=== PATIENT | female | born 2000 | race Caucasian/White ===

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

== ENCOUNTER 2019-11-19 13:35 | Emergency (ER) | payer SELFPAY ==
[2019-11-19 13:51] VITALS: O2SAT 98
--- NOTE | 2019-11-19 14:21 | XRAY ---
Indication: Pain following kickboxing injury. Comparison: None 3 nonweightbearing views right foot obtained. No bony, articular, or soft tissue abnormalities.
[2019-11-19 14:39] VITALS: BP 98/60; PULSE 69
--- NOTE | 2019-11-19 14:49 | ERPHSYRPT ---
- History of Present Illness Time Seen by Provider: 11/19/19 13:44 Source: patient Patient Subjective Stated Complaint: Pt states "I was doing a little drinking last night and me and one of my friends were messing around boxing and kickboxing and now my right ankle hurts." Triage Nursing Assessment: PT presented alert and oriented X 3, skin wpd Pt ambulates with an upright gait, limping slightly. Pt is tender to medial right ankle and foot, no bruising or swelling noted. Physician History: 19 years old female presented in the ER with chief complaint of right foot pain since morning. Patient reports last night she was drinking and boxing/ kickboxing and this morning woke up with to moderate sharp pain in the right medial foot especially with weightbearing/movement and palpation and better with being still. No swelling of the foot. No ankle pain. Does not remember any obvious injury to right foot. Method of Injury: unknown Occurred: yesterday Quality: intermittent Severity of Pain-Max: moderate Severity of Pain-Current: mild Lower Extremities Pain: foot: right Modifying Factors: Improves With: immobilization, movement Allergies/Adverse Reactions: acetaminophen Allergy (Verified 09/03/18 20:54) Rash Hx Tetanus, Diphtheria Vaccination/Date Given: Yes Hx Influenza Vaccination/Date Given: No Hx Pneumococcal Vaccination/Date Given: No Immunizations Up to Date: Yes Travel Risk - International Travel Have you traveled outside of the country in past 3 weeks: No Have you or anyone close to you been diagnosed with or: No Do your reside in a community with a known COVID-19 case?: Yes If Yes where:: [place] - Coronavirus Screening Has patient experienced Coronavirus symptoms: No - Review of Systems Constitutional: No Symptoms Eyes: No Symptoms Ears, Nose, & Throat: No Symptoms Respiratory: No Symptoms Cardiac: No Symptoms Abdominal/Gastrointestinal: No Symptoms Genitourinary Symptoms: No Symptoms Musculoskeletal: Joint Pain Skin: No Symptoms Neurological: No Symptoms Psychological: No Symptoms Endocrine: No Symptoms - Past Medical History Pertinent Past Medical History: No Neurological History: No Pertinent History ENT History: No Pertinent History Cardiac History: No Pertinent History Respiratory History: No Pertinent History Endocrine Medical History: No Pertinent History Musculoskeletal History: No Pertinent History GI Medical History: No Pertinent History History: No Pertinent History Psycho-Social History: No Pertinent History Female Reproductive Disorders: No Pertinent History - Past Surgical History Past Surgical History: Yes Neuro Surgical History: No Pertinent History Cardiac: No Pertinent History Respiratory: No Pertinent History Gastrointestinal: No Pertinent History Genitourinary: No Pertinent History Musculoskeletal: No Pertinent History Female Surgical History: No Pertinent History - Social History Smoking Status: Current every day smoker How long have you smoked: years Exposure to second hand smoke: Yes Drug Use: none Patient Lives Alone: No - Female History Hx Last Menstrual Period: 11/10/2019 Hx Now: No - Nursing Vital Signs Nursing Vital Signs: Initial Vital Signs Temperature 98.5 F 11/19/19 13:46 Pulse Rate 100 H 11/19/19 13:46 Respiratory Rate 18 11/19/19 13:46 Blood Pressure 118/84 11/19/19 13:46 O2 Sat by Pulse Oximetry 98 11/19/19 13:46 Pain Scale Pain Intensity 4 - Physical Exam General Appearance: no apparent distress, alert Eyes, Ears, Nose, Throat Exam: normal ENT inspection, TMs normal, pharynx normal Neck Exam: normal inspection, supple, full range of motion Cardiovascular/Respiratory Exam: normal breath sounds, regular rate/rhythm Gastrointestinal/Abdominal Exam: non-tender, soft Back Exam: normal inspection Hips Exam: bilateral: non-tender, normal inspection, normal range of motion Legs Exam: bilateral leg: non-tender, normal inspection, normal range of motion , no evidence of injury Knees Exam: bilateral knee: non-tender, normal inspection, normal range of motion Ankle Exam: bilateral ankle: non-tender, normal inspection, normal range of motion, no evidence of injury Foot Exam: right foot: bone tenderness (Medial foot tarsal bones), pain, left foot: non-tender, bilateral foot: normal inspection, normal range of motion, no evidence of injury Neuro/Tendon Exam: normal sensation, normal motor functions Mental Status Exam: alert, oriented x 3, cooperative Skin Exam: normal color SpO2 Interpretation: normal SpO2: 98 O2 Delivery: Room Air - Course Nursing assessment & vital signs reviewed: Yes Ordered Tests: Active Orders 24 hr Category Date Time Status FOOT (MINIMUM 3 VIEWS) Stat Exams 11/19/19 14:14 Completed - Progress Progress: unchanged Progress Note: 11/19/19 14:48 Is offered pain medication which she refused. She does not have any obvious swelling but has mild tenderness with palpation. X-rays ruled out fracture dislocation. I believe she has ligamentous strain. Recommended Neville wrap, weightbearing as tolerated and NSAIDs. Outpatient follow-up with Ortho clinic. Discussed signs symptoms of worsening needing return to ER which she seems understanding. Stable for discharge. Counseled pt/family regarding: diagnosis, need for follow-up, rad results - Departure Departure Disposition: Home Clinical Impression: Right foot sprain Qualifiers: Encounter type: initial encounter Qualified Code(s): S93.601A - Unspecified sprain of right foot, initial encounter Condition: Stable Critical Care Time: No Referrals: DOCTOR,NO FAMILY [Primary Care Provider] - CLINTON SAM NP [NON-STAFF PHY W/O PRIVILEGES] - Follow Up with PCP/3 days Instructions: Foot Sprain (DC) Additional Instructions: Weightbearing as tolerated. Take Tylenol/ibuprofen as needed. Follow-up with Ortho clinic for reevaluation. Return to ER for increasing pain, swelling or difficulty ambulation etc. Prescriptions: Ibuprofen 600 mg PO Q6HPRN PRN 10 Days #20 tablet PRN Reason: Pain
== END 2019-11-19 15:03 | disposition home or self-care (01) ==
LOC: ED 13:35
DX: S93.601A Unspecified sprain of right foot, initial encounter (principal); W51.XXXA Accidental striking against or bumped into by another person, initial encounter; Y93.71 Activity, boxing; Y92.89 Other specified places as the place of occurrence of the external cause; Z72.0 Tobacco use
CPT/HCPCS: 73630; 99283

== ENCOUNTER 2019-11-29 10:24 | Emergency (ER) | payer SELFPAY ==
--- NOTE | 2019-11-29 11:20 | ERPHSYRPT ---
- History of Present Illness Time Seen by Provider: 11/29/19 11:05 Source: patient Exam Limitations: no limitations Patient Subjective Stated Complaint: pt here for a sore thorat for 3-4 days now , no fever, slight cough Triage Nursing Assessment: pt alert, walked in, resp easy, skin w/d/p. wearing mask Physician History: 19-year-old white female who presents with sore throat for 4 days. She states that she has a chronic cough. She is a daily smoker of cigarettes. Patient denies chest pain and she denies shortness of breath. She has had no nausea vomiting or diarrhea. She has had no flulike symptoms. Approximately 1 month ago patient was diagnosed with strep throat. The symptoms feel similar to that. Patient does have a history of seasonal allergies. Timing/Duration: gradual onset Severity: moderate ENT Location: throat Prearrival Treatment: no prearrival treatment Modifying Factors: Improves With: coughing (Mild nonproductive) Associated Symptoms: cough, sore throat, other (To swallow solids or liquids), No fever (Nonproductive), No chills Allergies/Adverse Reactions: acetaminophen Allergy (Verified 11/29/19 10:39) Rash Hx Tetanus, Diphtheria Vaccination/Date Given: Yes Hx Influenza Vaccination/Date Given: No Hx Pneumococcal Vaccination/Date Given: No Immunizations Up to Date: Yes Travel Risk - International Travel Have you traveled outside of the country in past 3 weeks: No Have you or anyone close to you been diagnosed with or: No Do your reside in a community with a known COVID-19 case?: Yes If Yes where:: [place] - Coronavirus Screening Has patient experienced Coronavirus symptoms: No - Review of Systems Constitutional: No Symptoms Eyes: No Symptoms Ears, Nose, & Throat: Throat Pain Respiratory: Cough (Mild nonproductive) Cardiac: No Symptoms Abdominal/Gastrointestinal: No Symptoms Genitourinary Symptoms: No Symptoms Musculoskeletal: No Symptoms Skin: No Symptoms Neurological: No Symptoms Psychological: No Symptoms Endocrine: No Symptoms Hematologic/Lymphatic: No Symptoms Immunological/Allergic: No Symptoms All Other Systems: Reviewed and Negative - Past Medical History Pertinent Past Medical History: No Neurological History: No Pertinent History ENT History: No Pertinent History Cardiac History: No Pertinent History Respiratory History: No Pertinent History Endocrine Medical History: No Pertinent History Musculoskeletal History: No Pertinent History GI Medical History: No Pertinent History History: No Pertinent History Psycho-Social History: No Pertinent History Female Reproductive Disorders: No Pertinent History - Past Surgical History Past Surgical History: Yes Neuro Surgical History: No Pertinent History Cardiac: No Pertinent History Respiratory: No Pertinent History Gastrointestinal: No Pertinent History Genitourinary: No Pertinent History Musculoskeletal: No Pertinent History Female Surgical History: No Pertinent History - Social History Smoking Status: Current some day smoker How long have you smoked: years Exposure to second hand smoke: Yes Drug Use: other Patient Lives Alone: Yes - Female History Hx Last Menstrual Period: 3 weeks ago Hx Now: No - Nursing Vital Signs Nursing Vital Signs: Initial Vital Signs Temperature 98.6 F 11/29/19 10:33 Pulse Rate 87 11/29/19 10:33 Respiratory Rate 16 11/29/19 10:33 Blood Pressure 111/87 11/29/19 10:33 O2 Sat by Pulse Oximetry 97 11/29/19 10:33 Pain Scale Pain Intensity 6 - Physical Exam General Appearance: no apparent distress, alert Eye Exam: bilateral eye: normal inspection, PERRL, EOMI Ear Exam: bilateral ear: auricle normal, canal normal, TM normal Nasal Exam: normal inspection Throat Exam: pharynx swelling (With mild pharyngeal redness), No tonsillar exudate Neck Exam: normal inspection, non-tender, supple, full range of motion, trachea midline, No lymphadenopathy (R), No lymphadenopathy (L) Cardiovascular/Respiratory Exam: chest non-tender, normal breath sounds, regular rate/rhythm, heart sounds normal, no respiratory distress Abdominal Exam: non-tender Neurologic Exam: alert, oriented x 3, cooperative, strip stamp straightener II-XII nml as tested, normal mood/affect, nml cerebellar function, nml station & gait Skin Exam: normal color, warm, dry SpO2 Interpretation: normal SpO2: 97 O2 Delivery: Room Air - Course Nursing assessment & vital signs reviewed: Yes - Progress Progress: unchanged Counseled pt/family regarding: diagnosis, need for follow-up, rad results - Departure Departure Disposition: Home Clinical Impression: Pharyngitis Condition: Stable Critical Care Time: No Referrals: DOCTOR,NO FAMILY [Primary Care Provider] - Additional Instructions: Drink plenty of fluids, avoid exposure to smoke of any kind. Take your medications as prescribed. Follow-up with your primary care physician for persistent symptoms Prescriptions: Azithromycin 250 mg [Zithromax 250 MG TABLET] 250 mg PO ZPACK #6 tablet Hydrocodone/Chlorphen Polis [Tussionex Pennkinetic Susp] 5 ml PO BID #60 ml Prednisone 10 mg [Deltasone 10 mg] 10 mg PO TID #12 tablet
[2019-11-29 11:35] VITALS: BP 126/86; PULSE 86; O2SAT 98
== END 2019-11-29 11:45 | disposition home or self-care (01) ==
LOC: ED 10:24
DX: J02.9 Acute pharyngitis, unspecified (principal)
CPT/HCPCS: 99283

== ENCOUNTER 2019-12-02 04:21 | Emergency (ER) | payer SELFPAY ==
--- NOTE | 2019-12-02 04:51 | ERPHSYRPT ---
- History of Present Illness Source: patient Patient Subjective Stated Complaint: Patient states " I have had a sore throat for about 6 days now and it is very hard to swallow", Triage Nursing Assessment: . Physician History: 19 [address] x6 days/mild coryza/mild cough wo fever/N/V/D/dysuria/hematuria. Pt seen in ER on 11/29/19 and prescribed Zithromax which she did not get filled. Timing/Duration: other (6days) Cough Quality/Degree: mild, dry cough Possible Cause: no prior episodes Modifying Factors: Improves With: nothing Associated Symptoms: cough, sore throat, No fever, No chills, No earache, No headache Allergies/Adverse Reactions: acetaminophen Allergy (Verified 12/02/19 04:39) Rash Hx Tetanus, Diphtheria Vaccination/Date Given: Yes Hx Influenza Vaccination/Date Given: No Hx Pneumococcal Vaccination/Date Given: No Immunizations Up to Date: Yes Travel Risk - International Travel Have you traveled outside of the country in past 3 weeks: No - Coronavirus Screening Are you exhibiting any of the following symptoms?: No Close contact with a COVID-19 positive Pt in past 14-21 Days: No - Review of Systems Constitutional: No Symptoms Eyes: No Symptoms Respiratory: Cough Cardiac: No Symptoms Abdominal/Gastrointestinal: No Symptoms Genitourinary Symptoms: No Symptoms Musculoskeletal: No Symptoms Skin: No Symptoms Neurological: No Symptoms Psychological: No Symptoms Endocrine: No Symptoms Hematologic/Lymphatic: No Symptoms Immunological/Allergic: No Symptoms - Past Medical History Pertinent Past Medical History: No Neurological History: No Pertinent History ENT History: No Pertinent History Cardiac History: No Pertinent History Respiratory History: No Pertinent History Endocrine Medical History: No Pertinent History Musculoskeletal History: No Pertinent History GI Medical History: No Pertinent History History: No Pertinent History Psycho-Social History: No Pertinent History Female Reproductive Disorders: No Pertinent History - Past Surgical History Past Surgical History: Yes Neuro Surgical History: No Pertinent History Cardiac: No Pertinent History Respiratory: No Pertinent History Gastrointestinal: No Pertinent History Genitourinary: No Pertinent History Musculoskeletal: No Pertinent History Female Surgical History: No Pertinent History - Social History Smoking Status: Current every day smoker How long have you smoked: 6 years Exposure to second hand smoke: Yes Drug Use: other Patient Lives Alone: No Significant Family History: no pertinent family hx - Female History Hx Last Menstrual Period: 11/01/19 Hx Now: No - Nursing Vital Signs Nursing Vital Signs: Initial Vital Signs Temperature 98.6 F 12/02/19 04:27 Pulse Rate 100 H 12/02/19 04:27 Respiratory Rate 16 12/02/19 04:27 Blood Pressure 116/88 12/02/19 04:27 O2 Sat by Pulse Oximetry 97 12/02/19 04:27 Pain Scale Pain Intensity 6 - Physical Exam General Appearance: no apparent distress Eye Exam: PERRL/EOMI, eyes nml inspection Ears, Nose, Throat Exam: pharyngeal erythema (Mild) Respiratory Exam: normal breath sounds, lungs clear, airway intact, No respiratory distress Cardiovascular Exam: regular rate/rhythm, normal peripheral pulses, No murmur Back Exam: normal inspection, normal range of motion Extremity Exam: normal inspection, normal range of motion Neurologic Exam: alert, oriented x 3, cooperative, 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, normal mood/affect, sensation nml, No motor deficits, No sensory deficit Skin Exam: normal color, warm, dry Lymphatic Exam: No adenopathy SpO2 Interpretation: normal SpO2: 97 Lab/Rad Data: Laboratory Results 12/02/19 Range/Units 04:35 Group A Strep Antibody NOT DETECTED (NEGATIVE) - Progress Progress: unchanged Progress Note: 12/02/19 05:09 Rapid strep neg/Most likely viral Antibiotics given: No Counseled pt/family regarding: lab results, need for follow-up - Departure Departure Disposition: Home, Extended Care Facility Clinical Impression: Pharyngitis Condition: Stable Critical Care Time: No Referrals: DOCTOR,NO FAMILY [Primary Care Provider] - Instructions: Viral Pharyngitis (DC) Additional Instructions: Fluids/Motrin for pain/Follow up with your family
[2019-12-02 05:19] VITALS: BP 117/98; PULSE 88; O2SAT 98
== END 2019-12-02 05:19 | disposition home or self-care (01) ==
LOC: ED 04:21
DX: J02.9 Acute pharyngitis, unspecified (principal)
CPT/HCPCS: 87651; 99283

== ENCOUNTER 2019-12-24 03:34 | Emergency (ER) | payer OTHER ==
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
[2019-12-24 04:51] LABS: ALBUMIN 4.6 g/dL (3.5-5.0); ALKALINE PHOSPHATASE 63 U/L (38-126); ANION GAP 15.1 MEQ/L (5-15); Absolute Neutrophil Ct (ANC) 4.09 (1.4-6.9); BASOPHIL % 0.6 % (0.0-0.4); BLOOD UREA NITROGEN 5 mg/dL (7-17); Basophil (Absolute #) 0.04 (0-0.4); CHLORIDE 110 mmol/L (98-107); Calcium 9.6 mg/dL (8.4-10.2); Carbon Dioxide 21 mmol/L (22-30); Creatinine 1 0.61 mg/dL (0.52-1.04); ETHYL ALCOHOL 222 mg/dL (0-10); Eosinophil % 0.8 % (0.00-5.0); Eosinophil (Absolute #) 0.05 (0-0.5); Glucose 104 mg/dL (74-106); Hematocrit 39.2 % (35-47); Hemoglobin 13.1 gm/dl (12.0-16.0); Lymphocyte (Absolute #) 1.82 (1.0-4.6); Lymphocytes % 27.7 % (24.0-44.0); Mean Cell Volume 91.2 fl (78-100); Mean Corpuscular Hemoglobin 30.5 pg (26-32); Mean Corpuscular Hgb Concent. 33.4 g/dl (32-36); Mean Platelet Volume 10.5 fl (7.5-11.0); Monocyte (Absolute #) 0.57 (0.0-1.3); Monocytes % 8.7 % (0.0-12.0); Neutrophil % 62.2 % (36.0-66.0); Platelet Count 300 K/mm3 (150-450); Potassium 3.4 mmol/L (3.5-5.1); Red Cell Distribution Width 14.4 % (11.5-14.0); SGOT/AST 25 U/L (14-36); SGPT/ALT 15 U/L (0-35); SODIUM 142 mmol/L (137-145); Total Protein 7.9 g/dL (6.3-8.2); White Blood Count 6.6 K/mm3 (4.0-10.5)
[2019-12-24 04:53] LABS: ACETAMINOPHEN < 10 ug/ml (10-30)
[2019-12-24 05:02] LABS: Appearance CLEAR (CLEAR); Bacteria NONE SEEN /HPF (NEGATIVE); Bilirubin NEGATIVE (NEGATIVE); Blood NEGATIVE Ery/ul (0-5); Epithelial Cells RARE /HPF (FEW); Glucose NEGATIVE (NEGATIVE); Ketones NEGATIVE (NEGATIVE); Leukocyte Esterase NEGATIVE (NEGATIVE); Nitrite NEGATIVE (NEGATIVE); Protein,Urine Dip NEGATIVE (Negative); RBC NONE SEEN /HPF (0-2); Specific Gravity 1.001 (1.005-1.025); Urobilinogen NORMAL mg/dL (0-1); WBC NONE SEEN /HPF (0-5)
[2019-12-24 05:07] LABS: Amphetamine,Urine NEGATIVE (NEGATIVE); Barbiturate,Urine NEGATIVE (NEGATIVE); Benzodiazepine,Urine NEGATIVE (NEGATIVE); Cocaine,Urine NEGATIVE (NEGATIVE); Methadone,Urine NEGATIVE (NEGATIVE); Opiate,Urine NEGATIVE (NEGATIVE); PCP,Urine NEGATIVE (NEGATIVE); THC,Urine NEGATIVE (NEGATIVE)
[2019-12-24 05:29] VITALS: BP 108/58; PULSE 89; O2SAT 99
--- NOTE | 2019-12-24 08:47 | XRAY ---
Indication: Pain following injury. Comparison: None 3 view right hand obtained. No bony, articular, or soft tissue abnormalities.
[2019-12-24] MEDS ORDERED: NICOTINE PATCH 7MG TD SCH (10:00)
== END 2019-12-24 05:30 | disposition home or self-care (01) ==
LOC: ED 03:34
DX: F10.929 Alcohol use, unspecified with intoxication, unspecified (principal); S60.221A Contusion of right hand, initial encounter; Y04.0XXA Assault by unarmed brawl or fight, initial encounter; S60.511A Abrasion of right hand, initial encounter
CPT/HCPCS: 36415; 73130; 80053; 80307; 81001; 81025; 85025; 99284; G0480

== ENCOUNTER 2020-01-07 09:31 | Emergency (ER) | payer OTHER ==
[2020-01-07] MEDS ORDERED: Zofran 4 MG/2 ML VIAL IV ONE (09:39)
[2020-01-07] MEDS ORDERED: Sodium Chloride 0.9% 1000 ML 1,000 ML IV STA (09:39)
[2020-01-07] MEDS ORDERED: MORPHINE SULFATE 2 MG INJ IV ONE (09:39)
[2020-01-07 09:49] VITALS: BP 145/89; PULSE 95; O2SAT 98
[2020-01-07] MEDS ORDERED: Zofran 4 MG/2 ML VIAL ONE (09:56)
[2020-01-07] MEDS ORDERED: Sodium Chloride 0.9% 1000 ML 1,000 ML ONE (09:57)
[2020-01-07] MEDS ORDERED: MORPHINE SULFATE 2 MG INJ ONE (09:57)
--- NOTE | 2020-01-07 10:11 | ERPHSYRPT ---
- History of Present Illness Time Seen by Provider: 01/07/20 09:45 Historian: patient Exam Limitations: no limitations Patient Subjective Stated Complaint: pt here for n/v/d since sat. and left sided abd on sunday, she staes she is able to eat and drink Triage Nursing Assessment: pt janice, walked in with face mask in place, pain to left abd, abd soft. moves all ext well Physician History: Patient is a 19-year-old female presents to our ED for evaluation of nausea vomiting and diarrhea. Symptoms started Sunday. Patient developed left side abdominal pain yesterday. Symptoms have been progressive. Symptoms are mild to moderate intensity. Pain reproduced with palpation to left abdomen. Patient denies . No associated fever. No trauma. Patient states he is otherwise healthy. She voices no other complaints at this time. Timing/Duration: day(s) (4 days ago) Activities at Onset: none Quality: aching Abdominal Pain Onset Location: other (Left abdomen.) Pain Radiation: no radiation Severity of Pain-Max: moderate Severity of Pain-Current: mild Modifying Factors: Improves With: movement Associated Symptoms: diarrhea, nausea, vomiting Previous symptoms: no prior history Allergies/Adverse Reactions: acetaminophen Allergy (Verified 01/07/20 09:36) Rash Home Medications: No Reportable Medications [No Reported Medications] 01/07/20 [History] Hx Tetanus, Diphtheria Vaccination/Date Given: Yes Hx Influenza Vaccination/Date Given: No Hx Pneumococcal Vaccination/Date Given: No Immunizations Up to Date: Yes Travel Risk - International Travel Have you traveled outside of the country in past 3 weeks: No - Coronavirus Screening Are you exhibiting any of the following symptoms?: No Close contact with a COVID-19 positive Pt in past 14-21 Days: No - Review of Systems Constitutional: No Symptoms, No Fever, No Chills Eyes: No Symptoms Ears, Nose, & Throat: No Symptoms Respiratory: No Symptoms, No Cough, No Dyspnea Cardiac: No Symptoms, No Chest Pain, No Edema, No Syncope Abdominal/Gastrointestinal: No Symptoms, No Abdominal Pain, No Nausea, No Vomiting, No Diarrhea Genitourinary Symptoms: No Symptoms, No Dysuria Musculoskeletal: No Symptoms, No Back Pain, No Neck Pain Skin: No Symptoms, No Rash Neurological: No Symptoms, No Dizziness, No Focal Weakness, No Sensory Changes Psychological: No Symptoms Endocrine: No Symptoms Hematologic/Lymphatic: No Symptoms Immunological/Allergic: No Symptoms All Other Systems: Reviewed and Negative - Past Medical History Pertinent Past Medical History: No Neurological History: No Pertinent History ENT History: No Pertinent History Cardiac History: No Pertinent History Respiratory History: No Pertinent History Endocrine Medical History: No Pertinent History Musculoskeletal History: No Pertinent History GI Medical History: No Pertinent History History: No Pertinent History Psycho-Social History: No Pertinent History Female Reproductive Disorders: No Pertinent History - Past Surgical History Past Surgical History: Yes Neuro Surgical History: No Pertinent History Cardiac: No Pertinent History Respiratory: No Pertinent History Gastrointestinal: No Pertinent History Genitourinary: No Pertinent History Musculoskeletal: No Pertinent History Female Surgical History: No Pertinent History - Social History Smoking Status: Current every day smoker How long have you smoked: 6 years Exposure to second hand smoke: Yes Drug Use: none Patient Lives Alone: No Significant Family History: no pertinent family hx - Female History Hx Last Menstrual Period: november Hx Now: No - Nursing Vital Signs Nursing Vital Signs: Initial Vital Signs Temperature 99.2 F 01/07/20 09:37 Pulse Rate 95 H 01/07/20 09:37 Respiratory Rate 16 01/07/20 09:37 Blood Pressure 145/89 01/07/20 09:37 O2 Sat by Pulse Oximetry 98 01/07/20 09:37 Pain Scale Pain Intensity 0 - Physical Exam General Appearance: no apparent distress, alert Eye Exam: PERRL/EOMI, eyes nml inspection Ears, Nose, Throat Exam: normal ENT inspection, pharynx normal, moist mucous membranes Neck Exam: normal inspection, non-tender, supple, full range of motion Respiratory Exam: normal breath sounds, lungs clear, No respiratory distress Cardiovascular Exam: regular rate/rhythm, normal heart sounds Gastrointestinal/Abdomen Exam: soft, tenderness (Tenderness to palpation at left mid lower abdomen. Overlying soft tissue intact. No signs of trauma. Negative Bartlett Salinas sign. Negative Marcus sign. No rebound or guarding. No peritoneal signs.), No mass, No guarding, No organomegaly, No splenomegaly Back Exam: normal inspection, normal range of motion, No CVA tenderness, No vert ebral tenderness Extremity Exam: normal inspection, normal range of motion, pelvis stable Neurologic Exam: alert, oriented x 3, cooperative, normal mood/affect, nml cerebellar function, sensation nml, No motor deficits Skin Exam: normal color, warm, dry Lymphatic Exam: No adenopathy SpO2 Interpretation: normal SpO2: 98 O2 Delivery: Room Air - Course Nursing assessment & vital signs reviewed: Yes - CT Exams Abdomen/Pelvis CT Interpretation: Discussed w/radiologist (Fecal debris predominantly in the right hemicolon. Otherwise negative CT abdomen pelvis with contrast.) Ordered Tests: Active Orders 24 hr Category Date Time Status IV Insertion STAT Care 01/07/20 09:39 Active ABDOMEN AND PELVIS W CONTRAST [CT] Stat Exams 01/07/20 09:40 Completed CBC W DIFF Stat Lab 01/07/20 10:15 Completed CMP Stat Lab 01/07/20 10:15 Completed HCG,QUALITATIVE URINE Stat Lab 01/07/20 10:12 Completed LIPASE Stat Lab 01/07/20 10:15 Completed UA W/RFX UR CULTURE Stat Lab 01/07/20 10:12 Completed Medication Summary Discontinued Medications Generic Name Dose Route Start Last Admin Trade Name Freq PRN Reason Stop Dose Admin Sodium Chloride 1,000 mls @ 999 mls/hr 01/07/20 09:39 01/07/20 11:53 Sodium Chloride 0.9% 1000 Ml IV 01/07/20 10:39 Infused .Q1H1M STA Infusion Sodium Chloride Confirm 01/07/20 09:57 Sodium Chloride 0.9% 1000 Ml Administered 01/07/20 09:58 Dose 1,000 mls @ ud .ROUTE .STK-MED ONE Morphine Sulfate 2 mg 01/07/20 09:39 01/07/20 10:28 Morphine Sulfate 2 Mg Inj IV 01/07/20 09:40 2 mg STAT ONE Administration Morphine Sulfate Confirm 01/07/20 09:57 Morphine Sulfate 2 Mg Inj Administered 01/07/20 09:58 Dose 2 mg .ROUTE .STK-MED ONE Ondansetron HCl 4 mg 01/07/20 09:39 01/07/20 10:28 Zofran 4 Mg/2 Ml Vial IV 01/07/20 09:40 4 mg STAT ONE Administration Ondansetron HCl Confirm 01/07/20 09:56 Zofran 4 Mg/2 Ml Vial Administered 01/07/20 09:57 Dose 4 mg .ROUTE .STK-MED ONE Lab/Rad Data: Laboratory Result Diagrams 01/07/20 10:15 01/07/20 10:15 Laboratory Results 01/07/20 01/07/20 01/07/20 Range/Units 10:15 10:15 10:12 WBC 9.8 (4.0-10.5) K/mm3 RBC 4.41 (4.1-5.4) M/mm3 Hgb 13.3 (12.0-16.0) gm/dl Hct 41.0 (35-47) % MCV 93.0 (78-100) fl MCH 30.2 (26-32) pg MCHC 32.4 (32-36) g/dl RDW 14.2 H (11.5-14.0) % Plt Count 251 (150-450) K/mm3 MPV 11.2 H (7.5-11.0) fl Gran % 63.4 (36.0-66.0) % Eos # (Auto) 0.11 (0-0.5) Absolute Lymphs (auto) 2.31 (1.0-4.6) Absolute Monos (auto) 1.14 (0.0-1.3) Lymphocytes % 23.6 L (24.0-44.0) % Monocytes % 11.7 (0.0-12.0) % Eosinophils % 1.1 (0.00-5.0) % Basophils % 0.2 (0.0-0.4) % Absolute Granulocytes 6.20 (1.4-6.9) Basophils # 0.02 (0-0.4) Sodium 141 (137-145) mmol/L Potassium 3.8 (3.5-5.1) mmol/L Chloride 111 H (98-107) mmol/L Carbon Dioxide 23 (22-30) mmol/L Anion Gap 11.0 (5-15) MEQ/L BUN 3 L (7-17) mg/dL Creatinine 0.51 L (0.52-1.04) mg/dL Estimated GFR > 60.0 ML/MIN Glucose 80 (74-106) mg/dL Calcium 9.5 (8.4-10.2) mg/dL Total Bilirubin 0.50 (0.2-1.3) mg/dL AST 18 (14-36) U/L ALT 12 (0-35) U/L Alkaline Phosphatase 47 (38-126) U/L Serum Total Protein 7.2 (6.3-8.2) g/dL Albumin 4.3 (3.5-5.0) g/dL Lipase 88 (23-300) U/L Urine Color (YELLOW) Urine Appearance (CLEAR) Urine pH (5-6) Ur Specific [place] (1.005-1.025) Urine Protein (Negative) Urine Ketones (NEGATIVE) Urine Blood (0-5) [place]/ul Urine Nitrite (NEGATIVE) Urine Bilirubin (NEGATIVE) Urine Urobilinogen (0-1) mg/dL Ur Leukocyte Esterase (NEGATIVE) Urine WBC (Auto) (0-5) /HPF Urine RBC (Auto) (0-2) /HPF U Epithel Cells (Auto) (FEW) /HPF Urine Bacteria (Auto) (NEGATIVE) /HPF Urine Mucus (Auto) (NEGATIVE) /HPF Urine Culture Reflexed (NO) Urine Glucose (NEGATIVE) mg/dL Urine HCG, Qual NEGATIVE (Negative) 01/07/20 Range/Units 10:12 WBC (4.0-10.5) K/mm3 RBC (4.1-5.4) M/mm3 Hgb (12.0-16.0) gm/dl Hct (35-47) % MCV (78-100) fl MCH (26-32) pg MCHC (32-36) g/dl RDW (11.5-14.0) % Plt Count (150-450) K/mm3 MPV (7.5-11.0) fl Gran % (36.0-66.0) % Eos # (Auto) (0-0.5) Absolute Lymphs (auto) (1.0-4.6) Absolute Monos (auto) (0.0-1.3) Lymphocytes % (24.0-44.0) % Monocytes % (0.0-12.0) % Eosinophils % (0.00-5.0) % Basophils % (0.0-0.4) % Absolute Granulocytes (1.4-6.9) Basophils # (0-0.4) Sodium (137-145) mmol/L Potassium (3.5-5.1) mmol/L Chloride (98-107) mmol/L Carbon Dioxide (22-30) mmol/L Anion Gap (5-15) MEQ/L BUN (7-17) mg/dL Creatinine (0.52-1.04) mg/dL Estimated GFR ML/MIN Glucose (74-106) mg/dL Calcium (8.4-10.2) mg/dL Total Bilirubin (0.2-1.3) mg/dL AST (14-36) U/L ALT (0-35) U/L Alkaline Phosphatase (38-126) U/L Serum Total Protein (6.3-8.2) g/dL Albumin (3.5-5.0) g/dL Lipase (23-300) U/L Urine Color STRAW (YELLOW) Urine Appearance CLEAR (CLEAR) Urine pH 6.0 (5-6) Ur Specific [place] 1.004 (1.005-1.025) Urine Protein NEGATIVE (Negative) Urine Ketones NEGATIVE (NEGATIVE) Urine Blood NEGATIVE (0-5) [place]/ul Urine Nitrite NEGATIVE (NEGATIVE) Urine Bilirubin NEGATIVE (NEGATIVE) Urine Urobilinogen NEGATIVE (0-1) mg/dL Ur Leukocyte Esterase NEGATIVE (NEGATIVE) Urine WBC (Auto) NONE (0-5) /HPF Urine RBC (Auto) NONE SEEN (0-2) /HPF U Epithel Cells (Auto) NONE (FEW) /HPF Urine Bacteria (Auto) RARE (NEGATIVE) /HPF Urine Mucus (Auto) SLIGHT (NEGATIVE) /HPF Urine Culture Reflexed NO (NO) Urine Glucose NEGATIVE (NEGATIVE) mg/dL Urine HCG, Qual (Negative) - Departure Departure Disposition: Home, Extended Care Facility, Release to [place]/[facility] [place] Clinical Impression: Gastroenteritis, Abdominal pain Condition: Stable Critical Care Time: Yes Referrals: ANEESH PORTILLO [ACTIVE STAFF] - Instructions: Diarrhea and Travelers' Diarrhea, Adult (DC) Additional Instructions: Discharge/Care Plan WUXOCHILT KWON was seen on 01/07/20 in the Emergency Room. The patient was counseled regarding Diagnosis,Lab results, Imaging studies, need for follow up and when to return to the Emergency Room. Prescriptions given: Discharge Note I have spoken with the patient and/or caregivers. I have explained the patient's condition, diagnosis and treatment plan based on the information available to me at this time. I have answered the patient's and/or caregiver's questions and addressed any concerns. The patient and/or caregivers have as good understanding of the patient's diagnosis, condition and treatment plan as can be expected at this point. The vital signs have been stable. The patient's condition is stable and appropriate for discharge from the emergency department. The patient will pursue further outpatient evaluation with the primary care physician or other designated or consulting physician as outlined in the discharge instructions. The patient and/or caregivers are agreeable to this plan of care and follow-up instructions have been explained in detail. The patient and/or caregivers have received these instruction. The patient/and or caregivers are aware that any significant change in condition or worsening of symptoms should prompt an immediate return to this or the closest emergency department or call 911.
[2020-01-07 10:26] LABS: Appearance CLEAR (CLEAR); Bacteria RARE /HPF (NEGATIVE); Bilirubin NEGATIVE (NEGATIVE); Blood NEGATIVE Ery/ul (0-5); Glucose NEGATIVE (NEGATIVE); Ketones NEGATIVE (NEGATIVE); Leukocyte Esterase NEGATIVE (NEGATIVE); Mucus SLIGHT /HPF (NEGATIVE); Nitrite NEGATIVE (NEGATIVE); Protein,Urine Dip NEGATIVE (Negative); Specific Gravity 1.004 (1.005-1.025); Urobilinogen NEGATIVE mg/dL (0-1)
[2020-01-07 10:27] LABS: RBC NONE SEEN /HPF (0-2)
[2020-01-07 11:02] LABS: BASOPHIL % 0.2 % (0.0-0.4); Basophil (Absolute #) 0.02 (0-0.4); Eosinophil % 1.1 % (0.00-5.0); Eosinophil (Absolute #) 0.11 (0-0.5); Hemoglobin 13.3 gm/dl (12.0-16.0); Lymphocyte (Absolute #) 2.31 (1.0-4.6); Lymphocytes % 23.6 % (24.0-44.0); Mean Corpuscular Hemoglobin 30.2 pg (26-32); Mean Corpuscular Hgb Concent. 32.4 g/dl (32-36); Mean Platelet Volume 11.2 fl (7.5-11.0); Monocyte (Absolute #) 1.14 (0.0-1.3); Monocytes % 11.7 % (0.0-12.0); Neutrophil % 63.4 % (36.0-66.0); Platelet Count 251 K/mm3 (150-450); Red Blood Count 4.41 M/mm3 (4.1-5.4); Red Cell Distribution Width 14.2 % (11.5-14.0); White Blood Count 9.8 K/mm3 (4.0-10.5)
[2020-01-07 11:07] LABS: ALBUMIN 4.3 g/dL (3.5-5.0); ALKALINE PHOSPHATASE 47 U/L (38-126); BLOOD UREA NITROGEN 3 mg/dL (7-17); CHLORIDE 111 mmol/L (98-107); Calcium 9.5 mg/dL (8.4-10.2); Carbon Dioxide 23 mmol/L (22-30); Creatinine 1 0.51 mg/dL (0.52-1.04); Glucose 80 mg/dL (74-106); LIPASE 88 U/L (23-300); Potassium 3.8 mmol/L (3.5-5.1); SGOT/AST 18 U/L (14-36); SGPT/ALT 12 U/L (0-35); SODIUM 141 mmol/L (137-145); Total Protein 7.2 g/dL (6.3-8.2)
--- NOTE | 2020-01-07 12:06 | XRAY ---
Indication: Left upper quadrant pain. Nausea, vomiting, diarrhea. Multiple contiguous axial images obtained through the abdomen and pelvis using 80 cc Isovue 370 contrast only. Comparison: None Lung bases are clear. Heart is not enlarged. Noncontrasted stomach and bowel loops appear nonobstructed. Normal air-filled appendix. Mild fecal debris predominantly in the right hemicolon. No free fluid/air. Remaining liver, gallbladder, pancreas, spleen, adrenal glands, kidneys, ureters, bladder, uterus, and aorta appear unremarkable. No pathologic retroperitoneal lymphadenopathy. Osseous structures intact. No ventral or inguinal hernias. Impression: Negative CT abdomen/pelvis with contrast exam.
== END 2020-01-07 12:52 | disposition home or self-care (01) ==
LOC: ED 09:31
DX: K52.9 Noninfective gastroenteritis and colitis, unspecified (principal); R10.9 Unspecified abdominal pain
CPT/HCPCS: 36415; 74177; 80053; 81001; 83690; 84703; 85025; 96360; 96374; 96375; 99284; J2270; J2405

== ENCOUNTER 2021-01-16 22:12 | Emergency (ER) | payer OTHER ==
[2021-01-16] MEDS ORDERED: Sodium Chloride 0.9% 1000 ML 1,000 ML IV STA (22:45)
[2021-01-16] MEDS ORDERED: Reglan 10 MG/2 ML IV ONE (22:45)
[2021-01-16] MEDS ORDERED: MORPHINE SULFATE 4 MG INJ IV ONE (22:45)
[2021-01-16] MEDS ORDERED: Reglan 10 MG/2 ML ONE (22:51)
[2021-01-16] MEDS ORDERED: MORPHINE SULFATE 4 MG INJ ONE (22:51)
[2021-01-16] MEDS ORDERED: Sodium Chloride 0.9% 1000 ML 1,000 ML ONE (22:51)
--- NOTE | 2021-01-16 22:56 | ERPHSYRPT ---
- History of Present Illness Time Seen by Provider: 01/16/21 22:15 Historian: patient Exam Limitations: no limitations Patient Subjective Stated Complaint: to er c/o abd pain to luq, ahn and cloudy foul odor urine. 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 Triage Nursing Assessment: To er c/o pain to head and abd/back pt arrives p/w/d resp easy a@ox3. pt last bm 01/09/21 and had to use an enema pt states small bm and had not had bm x 2 weeks prior to that. Physician History: 20 years old female with history of anxiety depression not taking any medication for the last 1 week presented in the ER with 4 days history of low back pain with associated nausea and one episode of nonprojectile, nonbilious vomiting and currently having pain in the left upper quadrant and bilateral flank mild to moderate dull aching without any significant aggravating or relieving factors and associated constipation. Patient reports last bowel movement was more than a week ago and she had to take enema for that. She is not taking any narcotic pain medications. Also reports increase urinary frequency and odor to it. No chest pain palpitations or shortness of breath. No fever or chills reported. She is also complaining of left-sided headache since yesterday off and on which is a mild dull aching pressure without any visual symptoms. No numbness tingling or focal weakness. During my interview patient is very anxious and sinus tachycardia. She reports whenever she is in the hospital she does not have tachycardia but denies any palpitations or shortness of breath. Denies being on any drugs. Timing/Duration: day(s) (4), intermittent, gradual onset, worse Activities at Onset: rest Quality: dullness Abdominal Pain Onset Location: LUQ, flank Pain Radiation: no radiation Severity of Pain-Max: moderate Severity of Pain-Current: moderate Modifying Factors: Improves With: nothing Associated Symptoms: back, fatigue, headache, nausea, vomiting, No chest pain, No diaphoresis, No fever/chills, No heartburn, No loss of appetite, No neck pain, No rash, No shortness of breath, No syncope, No weakness Previous symptoms: no prior history Allergies/Adverse Reactions: acetaminophen Allergy (Verified 01/07/20 09:36) Rash Home Medications: Aripiprazole [Abilify] 5 mg PO 01/16/21 [History] Escitalopram Oxalate 10 mg [Lexapro 10 MG] 10 mg PO DAILY 01/16/21 [History] Prazosin HCl [Minipress] 1 mg PO HS 01/16/21 [History] Hx Tetanus, Diphtheria Vaccination/Date Given: Yes Hx Influenza Vaccination/Date Given: No Hx Pneumococcal Vaccination/Date Given: No Travel Risk - International Travel Have you traveled outside of the country in past 3 weeks: No - Coronavirus Screening Are you exhibiting any of the following symptoms?: No Close contact with a COVID-19 positive Pt in past 14-21 Days: No - Vaccine Status Have you recieved a Covid-19 vaccination: No - Review of Systems Constitutional: No Symptoms Eyes: No Symptoms Ears, Nose, & Throat: No Symptoms Respiratory: No Symptoms Cardiac: No Symptoms Abdominal/Gastrointestinal: Abdominal Pain, Nausea, Vomiting, Constipation Genitourinary Symptoms: Frequency Musculoskeletal: Back Pain Skin: No Symptoms Neurological: Headache Psychological: Anxiety Hematologic/Lymphatic: No Symptoms Immunological/Allergic: No Symptoms - Past Medical History Pertinent Past Medical History: No Neurological History: No Pertinent History ENT History: No Pertinent History Cardiac History: No Pertinent History Respiratory History: No Pertinent History Endocrine Medical History: No Pertinent History Musculoskeletal History: No Pertinent History GI Medical History: No Pertinent History History: No Pertinent History Psycho-Social History: No Pertinent History Female Reproductive Disorders: No Pertinent History - Past Surgical History Past Surgical History: Yes Neuro Surgical History: No Pertinent History Cardiac: No Pertinent History Respiratory: No Pertinent History Gastrointestinal: No Pertinent History Genitourinary: No Pertinent History Musculoskeletal: No Pertinent History Female Surgical History: No Pertinent History - Social History Smoking Status: Current every day smoker How long have you smoked: 6 years Exposure to second hand smoke: Yes Drug Use: none Patient Lives Alone: No Significant Family History: no pertinent family hx - Female History Hx Last Menstrual Period: 12/26/20 Hx Now: (UNKN) - Nursing Vital Signs Nursing Vital Signs: Initial Vital Signs Temperature 98.6 F 01/16/21 22:18 Pulse Rate 117 H 01/16/21 22:18 Respiratory Rate 18 01/16/21 22:18 Blood Pressure 140/91 01/16/21 22:18 O2 Sat by Pulse Oximetry 99 01/16/21 22:18 Pain Scale Pain Intensity 4 - Physical Exam General Appearance: no apparent distress, alert, anxiety Eye Exam: PERRL/EOMI, eyes nml inspection Ears, Nose, Throat Exam: normal ENT inspection, TMs normal, pharynx normal Neck Exam: normal inspection, non-tender, supple, full range of motion, No meningismus Respiratory Exam: normal breath sounds, lungs clear Cardiovascular Exam: normal heart sounds, tachycardia Gastrointestinal/Abdomen Exam: soft, normal bowel sounds, tenderness (Mild generalized with no guarding or rebound) Back Exam: normal inspection, normal range of motion, CVA tenderness (Bilateral), No vertebral tenderness Extremity Exam: normal inspection, normal range of motion Neurologic Exam: alert, oriented x 3, cooperative, 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 as tested, nml cerebellar function, nml station & gait, sensation nml, No normal mood/affect (Anxious), No motor deficits, No sensory deficit Skin Exam: normal color SpO2 Interpretation: normal SpO2: 99 O2 Delivery: Room Air Ordered Tests: Active Orders 24 hr Category Date Time Status IV Insertion STAT Care 01/16/21 22:45 Active NPO (ED) STAT Care 01/16/21 22:45 Active ABDOMEN AND PELVIS W/0 CONTRAS [CT] Stat Exams 01/17/21 00:30 Taken CBC W DIFF Stat Lab 01/16/21 22:58 Completed CMP Stat Lab 01/16/21 22:58 Completed HCG,QUALITATIVE URINE Stat Lab 01/17/21 00:31 Completed LIPASE Stat Lab 01/16/21 22:58 Completed UA W/RFX UR CULTURE Stat Lab 01/17/21 00:27 Completed Urine Triage Profile Stat Lab 01/17/21 00:27 Completed Medication Summary Discontinued Medications Generic Name Dose Route Start Last Admin Trade Name [place] PRN Reason Stop Dose Admin Cephalexin HCl 500 mg 01/17/21 01:40 01/17/21 01:43 Keflex 500 Mg PO 01/17/21 01:41 500 mg STAT ONE Administration Cephalexin HCl Confirm 01/17/21 01:42 Keflex 500 Mg Administered 01/17/21 01:43 Dose 500 mg .ROUTE .STK-MED ONE Sodium Chloride 1,000 mls @ 999 mls/hr 01/16/21 22:45 01/17/21 00:48 Sodium Chloride 0.9% 1000 Ml IV 01/16/21 23:45 Infused .Q1H1M STA Infusion Sodium Chloride Confirm 01/16/21 22:51 Sodium Chloride 0.9% 1000 Ml Administered 01/16/21 22:52 Dose 1,000 mls @ ud .ROUTE .STK-MED ONE Metoclopramide HCl 10 mg 01/16/21 22:45 01/16/21 22:54 Reglan 10 Mg/2 Ml IV 01/16/21 22:46 10 mg STAT ONE Administration Metoclopramide HCl Confirm 01/16/21 22:51 Reglan 10 Mg/2 Ml Administered 01/16/21 22:52 Dose 10 mg .ROUTE .STK-MED ONE Morphine Sulfate 4 mg 01/16/21 22:45 01/16/21 22:55 Morphine Sulfate 4 Mg Inj IV 01/16/21 22:46 4 mg STAT ONE Administration Morphine Sulfate Confirm 01/16/21 22:51 Morphine Sulfate 4 Mg Inj Administered 01/16/21 22:52 Dose 4 mg .ROUTE .STK-MED ONE Lab/Rad Data: Laboratory Result Diagrams 01/16/21 22:58 01/16/21 22:58 Laboratory Results 01/17/21 01/16/21 01/16/21 Range/Units 00:31 22:58 22:58 WBC 4.0 (4.0-10.5) K/mm3 RBC 4.40 (4.1-5.4) M/mm3 Hgb 13.6 (12.0-16.0) gm/dl Hct 40.1 (35-47) % MCV 91.1 (78-100) fl MCH 30.9 (26-32) pg MCHC 33.9 (32-36) g/dl RDW 12.2 (11.5-14.0) % Plt Count 203 (150-450) K/mm3 MPV 10.9 (7.5-11.0) fl Gran % 62.0 (36.0-66.0) % Eos # (Auto) 0.01 (0-0.5) Absolute Lymphs (auto) 0.81 L (1.0-4.6) Absolute Monos (auto) 0.67 (0.0-1.3) Lymphocytes % 20.5 L (24.0-44.0) % Monocytes % 16.9 H (0.0-12.0) % Eosinophils % 0.3 (0.00-5.0) % Basophils % 0.3 (0.0-0.4) % Absolute Granulocytes 2.46 (1.4-6.9) Basophils # 0.01 (0-0.4) Sodium 138 (137-145) mmol/L Potassium 3.9 (3.5-5.1) mmol/L Chloride 101 (98-107) mmol/L Carbon Dioxide 22 (22-30) mmol/L Anion Gap 18.2 H (5-15) MEQ/L BUN 6 L (7-17) mg/dL Creatinine 0.62 (0.52-1.04) mg/dL Estimated GFR > 60.0 ML/MIN Glucose 96 (74-106) mg/dL Calcium 10.0 (8.4-10.2) mg/dL Total Bilirubin 0.20 (0.2-1.3) mg/dL AST 20 (14-36) U/L ALT 11 (0-35) U/L Alkaline Phosphatase 47 (38-126) U/L Serum Total Protein 8.0 (6.3-8.2) g/dL Albumin 4.8 (3.5-5.0) g/dL Lipase 50 (23-300) U/L Urine Color (YELLOW) Urine Appearance (CLEAR) Urine pH (5-6) Ur Specific [place] (1.005-1.025) Urine Protein (Negative) Urine Ketones (NEGATIVE) Urine Blood (0-5) [place]/ul Urine Nitrite (NEGATIVE) Urine Bilirubin (NEGATIVE) Urine Urobilinogen (0-1) mg/dL Ur Leukocyte Esterase (NEGATIVE) Urine WBC (Auto) (0-5) /HPF Urine RBC (Auto) (0-2) /HPF U Epithel Cells (Auto) (FEW) /HPF Urine Bacteria (Auto) (NEGATIVE) /HPF Urine Culture Reflexed (NO) Urine Glucose (NEGATIVE) mg/dL Urine HCG, Qual NEGATIVE (Negative) Urine Opiates Level (NEGATIVE) Ur Methadone (NEGATIVE) Urine Barbiturates (NEGATIVE) Ur Phencyclidine (PCP) (NEGATIVE) Urine Amphetamine (NEGATIVE) U Benzodiazepine Level (NEGATIVE) Urine Cocaine (NEGATIVE) Urine Marijuana (THC) (NEGATIVE) 01/16/21 01/16/21 Range/Units 00:36 00:36 WBC (4.0-10.5) K/mm3 RBC (4.1-5.4) M/mm3 Hgb (12.0-16.0) gm/dl Hct (35-47) % MCV (78-100) fl MCH (26-32) pg MCHC (32-36) g/dl RDW (11.5-14.0) % Plt Count (150-450) K/mm3 MPV (7.5-11.0) fl Gran % (36.0-66.0) % Eos # (Auto) (0-0.5) Absolute Lymphs (auto) (1.0-4.6) Absolute Monos (auto) (0.0-1.3) Lymphocytes % (24.0-44.0) % Monocytes % (0.0-12.0) % Eosinophils % (0.00-5.0) % Basophils % (0.0-0.4) % Absolute Granulocytes (1.4-6.9) Basophils # (0-0.4) Sodium (137-145) mmol/L Potassium (3.5-5.1) mmol/L Chloride (98-107) mmol/L Carbon Dioxide (22-30) mmol/L Anion Gap (5-15) MEQ/L BUN (7-17) mg/dL Creatinine (0.52-1.04) mg/dL Estimated GFR ML/MIN Glucose (74-106) mg/dL Calcium (8.4-10.2) mg/dL Total Bilirubin (0.2-1.3) mg/dL AST (14-36) U/L ALT (0-35) U/L Alkaline Phosphatase (38-126) U/L Serum Total Protein (6.3-8.2) g/dL Albumin (3.5-5.0) g/dL Lipase (23-300) U/L Urine Color YELLOW (YELLOW) Urine Appearance SLIGHTLY CLOUDY (CLEAR) Urine pH 7.0 (5-6) Ur Specific [place] 1.003 (1.005-1.025) Urine Protein NEGATIVE (Negative) Urine Ketones NEGATIVE (NEGATIVE) Urine Blood SMALL (0-5) [place]/ul Urine Nitrite NEGATIVE (NEGATIVE) Urine Bilirubin NEGATIVE (NEGATIVE) Urine Urobilinogen NEGATIVE (0-1) mg/dL Ur Leukocyte Esterase SMALL (NEGATIVE) Urine WBC (Auto) 6-10 (0-5) /HPF Urine RBC (Auto) 3-5 (0-2) /HPF U Epithel Cells (Auto) RARE (FEW) /HPF Urine Bacteria (Auto) FEW (NEGATIVE) /HPF Urine Culture Reflexed YES (NO) Urine Glucose NEGATIVE (NEGATIVE) mg/dL Urine HCG, Qual (Negative) Urine Opiates Level POSITIVE (NEGATIVE) Ur Methadone NEGATIVE (NEGATIVE) Urine Barbiturates NEGATIVE (NEGATIVE) Ur Phencyclidine (PCP) NEGATIVE (NEGATIVE) Urine Amphetamine POSITIVE (NEGATIVE) U Benzodiazepine Level NEGATIVE (NEGATIVE) Urine Cocaine NEGATIVE (NEGATIVE) Urine Marijuana (THC) NEGATIVE (NEGATIVE) - Progress Progress: improved, re-examined Progress Note: 01/17/21 01:41 Patient is given symptomatic treatment, on reevaluation her pain is completely resolved, no abdominal tenderness. Work-up grossly unremarkable except for some element of UTI and started on Keflex. Negative CT abdomen pelvis. Recommended stool softener MiraLAX along with increasing fiber in diet. Outpatient follow- up. Counseled pt/family regarding: lab results, diagnosis, need for follow-up, rad results - Departure Departure Disposition: Home Clinical Impression: Abdominal pain Qualifiers: Abdominal location: upper abdomen, unspecified Qualified Code(s): R10.10 - Upper abdominal pain, unspecified UTI (urinary tract infection) Qualifiers: Urinary tract infection type: site unspecified Hematuria presence: without hematuria Qualified Code(s): N39.0 - Urinary tract infection, site not specified Constipation Qualifiers: Constipation type: unspecified constipation type Qualified Code(s): K59.00 - Constipation, unspecified Condition: Stable Critical Care Time: No Referrals: DOCTOR,NO FAMILY [Primary Care Provider] - RIKA FERRER MD [ACTIVE STAFF] - Follow Up with PCP/3 days Instructions: Acute Abdomen (Belly Pain), Adult (DC) Additional Instructions: Take ibuprofen as needed for pain. Continue with MiraLAX and stool softener for constipation. Follow-up with primary care for reevaluation. Return to ER for worsening abdominal pain or if develop nausea vomiting etc. Prescriptions: Cephalexin Mh 500 mg [Keflex 500 mg] 500 mg PO TID #21 capsule
[2021-01-16 23:01] LABS: Absolute Neutrophil Ct (ANC) 2.46 (1.4-6.9); BASOPHIL % 0.3 % (0.0-0.4); Basophil (Absolute #) 0.01 (0-0.4); Eosinophil % 0.3 % (0.00-5.0); Eosinophil (Absolute #) 0.01 (0-0.5); Hematocrit 40.1 % (35-47); Hemoglobin 13.6 gm/dl (12.0-16.0); Lymphocyte (Absolute #) 0.81 (1.0-4.6); Lymphocytes % 20.5 % (24.0-44.0); Mean Cell Volume 91.1 fl (78-100); Mean Corpuscular Hemoglobin 30.9 pg (26-32); Mean Corpuscular Hgb Concent. 33.9 g/dl (32-36); Mean Platelet Volume 10.9 fl (7.5-11.0); Monocyte (Absolute #) 0.67 (0.0-1.3); Monocytes % 16.9 % (0.0-12.0); Platelet Count 203 K/mm3 (150-450); Red Cell Distribution Width 12.2 % (11.5-14.0)
[2021-01-16 23:12] LABS: ALBUMIN 4.8 g/dL (3.5-5.0); ALKALINE PHOSPHATASE 47 U/L (38-126); ANION GAP 18.2 MEQ/L (5-15); BLOOD UREA NITROGEN 6 mg/dL (7-17); CHLORIDE 101 mmol/L (98-107); Carbon Dioxide 22 mmol/L (22-30); Creatinine 1 0.62 mg/dL (0.52-1.04); EST GLOMERULAR FILTRATION RATE > 60.0 ML/MIN; Glucose 96 mg/dL (74-106); LIPASE 50 U/L (23-300); Potassium 3.9 mmol/L (3.5-5.1); SGOT/AST 20 U/L (14-36); SGPT/ALT 11 U/L (0-35); SODIUM 138 mmol/L (137-145)
[2021-01-17 00:48] LABS: Appearance SLIGHTLY CLOUDY (CLEAR); Bacteria FEW /HPF (NEGATIVE); Bilirubin NEGATIVE (NEGATIVE); Blood SMALL Ery/ul (0-5); Epithelial Cells RARE /HPF (FEW); Glucose NEGATIVE (NEGATIVE); Ketones NEGATIVE (NEGATIVE); Leukocyte Esterase SMALL (NEGATIVE); Nitrite NEGATIVE (NEGATIVE); Protein,Urine Dip NEGATIVE (Negative); Specific Gravity 1.003 (1.005-1.025); Urobilinogen NEGATIVE mg/dL (0-1)
[2021-01-17 01:06] VITALS: BP 108/82; PULSE 93
[2021-01-17 01:07] LABS: Amphetamine,Urine POSITIVE (NEGATIVE); Barbiturate,Urine NEGATIVE (NEGATIVE); Benzodiazepine,Urine NEGATIVE (NEGATIVE); Cocaine,Urine NEGATIVE (NEGATIVE); Methadone,Urine NEGATIVE (NEGATIVE); Opiate,Urine POSITIVE (NEGATIVE); PCP,Urine NEGATIVE (NEGATIVE); THC,Urine NEGATIVE (NEGATIVE)
[2021-01-17] MEDS ORDERED: KEFLEX 500 MG PO ONE (01:40)
[2021-01-17 01:42] VITALS: O2SAT 99
[2021-01-17] MEDS ORDERED: KEFLEX 500 MG ONE (01:42)
--- NOTE | 2021-01-17 09:11 | XRAY ---
Indication: Left upper quadrant and bilateral flank pain. Nausea and vomiting. Multiple contiguous axial images obtained through the abdomen and pelvis without contrast. Comparison: January 07, 2020 Lung bases remaining clear. Heart is not enlarged. Noncontrasted stomach and bowel loops remain nonobstructed again with normal appendix. There is slight increasing mild diffuse scattered colonic fecal debris throughout. No free fluid/air. Remaining liver, gallbladder, pancreas, spleen, adrenal glands, kidneys, ureters, bladder, uterus, and aorta are unremarkable for noncontrast exam. Impression: Mild fecal stasis. Remaining CT abdomen/pelvis without contrast exam is negative. Comment: Preliminary interpretation made by [facility]. No critical discrepancy.
== END 2021-01-17 01:45 | disposition home or self-care (01) ==
LOC: ED 22:12
DX: R10.10 Upper abdominal pain, unspecified (principal); N39.0 Urinary tract infection, site not specified
CPT/HCPCS: 36000; 36415; 74176; 80053; 80307; 81001; 83690; 84703; 85025; 87077; 87086; 87186; 96360; 96374; 96375; 99284; J2270; A9270-GY